=== PATIENT | male | born 1995 | race African-American/Black ===

== ENCOUNTER 2019-02-11 15:05 | Emergency (ER) | payer MEDICAID ==
[~2019-02-11] VITALS: Ht 175.3 cm; Wt 72.0 kg
[2019-02-11] MEDS ORDERED: KETOROLAC 60MG/2ML VIAL IM ONE (16:00)
[2019-02-11 17:32] VITALS: BP 117/72
== END 2019-02-11 17:34 | disposition home or self-care (01) ==
LOC: ER 15:27
DX: S09.8XXA Other specified injuries of head, initial encounter (principal); S30.0XXA Contusion of lower back and pelvis, initial encounter; S13.9XXA Sprain of joints and ligaments of unspecified parts of neck, initial encounter; V43.62XA Car passenger injured in collision with other type car in traffic accident, initial encounter; Y93.9 Activity, unspecified; Y92.410 Unspecified street and highway as the place of occurrence of the external cause
CPT/HCPCS: 70450; 72125; 72128; 96372; 99284; J1885